=== PATIENT | male | born 1995 | race Caucasian/White ===

== ENCOUNTER 2021-11-02 08:49 | Emergency (ER) | payer SELFPAY ==
[~2021-11-02] VITALS: Ht 157.5 cm; Wt 64.4 kg
[2021-11-02 09:06] VITALS: BP 142/76
--- NOTE | 2021-11-02 09:09 | NUR ---
PT AMBULATED TO ER BED 11 WITH A STEADY GAIT.
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
--- NOTE | 2021-11-02 09:41 | NUR ---
DR. GOMEZ AT PT BEDSIDE FOR FURTHER EVALUATION.
[2021-11-02] MEDS ORDERED: IBUPROFEN 600 MG TAB PO ONE (09:45)
--- NOTE | 2021-11-02 09:50 | NUR ---
REFINERY OPERATOR REFORMING UNIT AT PT BEDSIDE.
[2021-11-02] MEDS ORDERED: IBUP-2213 PO (10:32)
[2021-11-02 10:50] VITALS: BP 142/76
--- NOTE | 2021-11-02 10:51 | NUR ---
Patient discharged with v/s stable. Written and verbal after care instructions given FOR FINGER FRACTURE and explained. Patient alert, oriented and verbalized understanding of instructions. Ambulatory with steady gait. All questions addressed prior to discharge. ID band removed. Patient advised to follow up with PMD. Rx of IBUPROFEN given. Patient educated on indication of medication including possible reaction and side effects. Opportunity to ask questions provided and answered.
== END 2021-11-02 10:51 | disposition home or self-care (01) ==
LOC: MED 08:49
DX: S62.617A Displaced fracture of proximal phalanx of left little finger, initial encounter for closed fracture (principal); W19.XXXA Unspecified fall, initial encounter; Y93.89 Activity, other specified; Y92.89 Other specified places as the place of occurrence of the external cause; Y99.8 Other external cause status
CPT/HCPCS: 73130; 99283